=== PATIENT | female | born 1955 | race Caucasian/White ===

== ENCOUNTER → 2019-03-28 08:52 | Outpatient (CLI) | payer OTHER, SELFPAY ==
[2019-03-28 09:09] LABS: Bacteria Urine None Seen
[2019-03-28 09:49] LABS: Add Manual Diff / Slide Review NO; Basophils Absolute Auto 0 /uL (0-100); Basophils Percent Auto 0.6 % (0-2); Eosinophils Absolute Auto 100 /uL (0-450); Eosinophils Percent Auto 0.8 % (2-4); Hematocrit 39.2 % (36-46); Hemoglobin 13.6 g/dL (12.0-16.0); Lymphocytes Absolute Auto 1800 /uL (1100-4500); Lymphocytes Percent Auto 26.4 % (25-40); Mean Corpuscular HGB Conc 34.7 % (30-36); Mean Corpuscular Hemoglobin 36.8 PG (26-34); Mean Corpuscular Volume 106.1 fL (80-100); Monocytes Absolute Auto 600 /uL (0-900); Monocytes Percent Auto 8.1 % (3-14); Neutrophils Absolute Auto 4400 /uL (1500-7000); Neutrophils Percent Auto 64.1 % (50-75); Platelet Count 243 X10^3/uL (150-400); Red Cell Distribution Width 13.8 % (11.6-14.8); White Blood Cell Count 6.9 X10^3/uL (4.5-11.0)
[2019-03-28 10:14] LABS: Hemoglobin A1C% w Est Avg Glu 5.3 % (4.0-6.0)
[2019-03-28 10:15] LABS: Alanine Aminotransferase 18 IU/L (9-52); Albumin 4.3 g/dL (3.5-5.0); Albumin Globulin Ratio 1.5 (1.0-2.8); Alkaline Phosphatase 86 U/L (38-126); Aspartate Aminotransferase 21 IU/L (14-36); BUN Creatinine Ratio 21.7 (6-22); Bilirubin Total 0.5 mg/dL (0.2-1.3); Blood Urea Nitrogen 13 mg/dL (7-17); Calcium 9.7 mg/dL (8.4-10.2); Carbon Dioxide 28 mmol/L (22-32); Chloride 104 mmol/L (98-107); Estimated Glomerular Filt Rate > 60.0 mL/min (>60); Globulin 2.8 g/dL (1.7-4.1); Glucose 95 mg/dL (80-110); HEMOLYSIS < 15 (0-50); Potassium 3.7 mmol/L (3.4-5.1); Sodium 140 mmol/L (137-145); Total Protein 7.1 g/dL (6.3-8.2)
[2019-03-28 10:23] LABS: Appearance Urine UA CLEAR; Bilirubin Urine UA NEGATIVE (NEGATIVE); Color Urine UA YELLOW; Glucose Urine UA NEGATIVE (Negative); Ketones Urine UA NEGATIVE (NEGATIVE); Leukocyte Esterase Urine UA NEGATIVE (NEGATIVE); Nitrite Urine UA NEGATIVE (Negative); Occult Blood Urine UA 1+ (Negative); Protein Urine UA NEGATIVE (Negative); Urobilinogen Urine UA 0.2 E.U./dL (0.2)
[2019-03-28 10:53] LABS: Culture Indicated Urine Cult Not Indicated; RBC Urine 0-1/HPF (0-5/HPF); Squamous Epithelial Cell Urine 0-1 /HPF (0-5/HPF); WBC Urine 0-1/HPF (0-5/HPF)
== END ==
PROVIDERS: Visit Provider Orthopaedic Surgery
DX: Z01.818 Encounter for other preprocedural examination (principal); Z01.812 Encounter for preprocedural laboratory examination; N39.9 Disorder of urinary system, unspecified; Z13.1 Encounter for screening for diabetes mellitus; R73.9 Hyperglycemia, unspecified
CPT/HCPCS: 36415; 80053; 81001; 83036; 85025; 93005

== ENCOUNTER 2019-04-30 05:59 | Inpatient (IN) | payer OTHER, SELFPAY ==
[2019-04-05 08:48] VITALS: BMI 19.1
[2019-04-30] VITALS (15 sets, daily range): BP systolic 97–138; BP diastolic 48–67; PULSE 60–83; RESP 14–20; TEMP 36.2–37.5; O2SAT 63–98; BMI 18.2
--- NOTE | 2019-04-30 | DI.RAD.S_ITS ---
PROCEDURE: XR HIP W PEL IF DONE RT 2V INDICATIONS: RIGHT ANTERIOR HIP REPLACEMENT TECHNIQUE: 2 view(s) of the hip acquired. COMPARISON: None. FINDINGS: Bones: Patient is status post right hip arthroplasty, with hardware components in expected positions. The hip joint appears congruent. The visualized bony structures appear intact. Soft tissues: Overlying postoperative changes are noted. No suspicious soft tissue densities. IMPRESSION: Normal alignment after right total hip arthroplasty. Dictated by: Jemal Orr M.D. on 04/30/2019 at 12:44 Approved by: Jemal Orr M.D. on 04/30/2019 at 12:44
--- NOTE | 2019-04-30 06:34 | DI.RAD.S_ITS ---
PROCEDURE: XR HIP W PEL IF DONE RT 2V INDICATIONS: post op right MANJIT TECHNIQUE: 2 view(s) of the hip acquired. COMPARISON: [facility], [place], XR HIP W PEL IF DONE RT 2V, 04/30/2019, 9:30. FINDINGS: Bones: Patient is status post right hip arthroplasty, with hardware components in expected positions. The hip joint appears congruent. The visualized bony structures appear intact. Soft tissues: Overlying postoperative changes are noted. No suspicious soft tissue densities. IMPRESSION: Full [id number] imaging of the pelvis and right hip show excellent anatomic alignment after right total hip arthroplasty. Moderate left hip degenerative osteoarthritis is incidentally noted. Dictated by: Jemal Orr M.D. on 04/30/2019 at 12:44 Approved by: Jemal Orr M.D. on 04/30/2019 at 12:45
[2019-04-30] MEDS: PREGABALIN 75 MG CAPSULE PO (07:05)
[2019-04-30] MEDS: ACETAMINOPHEN 325 MG TABLET 975 MG PO (07:05)
[2019-04-30] MEDS: VANCOMYCIN 1,000 MG/200 ML PIGGYBACK 200 MG IV (07:25)
--- NOTE | 2019-04-30 07:26 | SUR.PREOP ---
spoke with Dr. Bermudez regarding current dosage amount for current Ancef order in relation to pt weight. Per Dr. Bermudez ok to continue with current order. Communicated this with circulating RN.
--- NOTE | 2019-04-30 07:35 | PM.PREOP ---
Pre-operative Note Interval Note History & Physical reviewed/Exam performed by Physician: Yes Changes to H&P: No
--- NOTE | 2019-04-30 07:36 | P.OP_ITS ---
Operative Date/Time/Diagnoses Date of procedure: 04/30/19 Time of procedure: 07:35 Pre-op diagnosis: right hip AVN and OA Post-op diagnosis: same Procedure & Clinicians Procedure: right total hip arthroplasty anterior approach Same procedure as scheduled: Yes Indications: The patient has had progressively worsening right hip pain with radiographic changes consistent with arthritis. Non-operative management has failed and the patient has requested total hip replacement. The risks, benefits and alternatives to surgery were discussed with the patient prior to proceeding. Risks discussed included, but were not limited to, failure to relieve pain, leg length discrepancy, dislocation, stiffness, infection, nerve damage, deep venous thrombosis, pulmonary embolism, stroke, coma, heart attack, permanent paralysis and , as well as the potential need for eventual revision of the prosthetic. 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 Patient was carefully positioned in the supine position. Time-out was performed and antibiotics were given. Anesthesia was induced. She was positioned in the on the table in order to allow hyperextension of the hip. The right lower extremity was prepped and draped in a standard sterile fashion. An anterior right hip incision was made 1 fingerbreadth lateral to the anterior superior iliac spine and extended distally towards the greater trochanter. Dissection was carried out through skin and subcutaneous tissues. The skin and subcutaneous tissues were carefully injected with Lidocaine with epi. Superficial hemostasis was achieved. The fascia over the tensor fascia magalie was defined and incised with a knife. Two Allis clamps were used to grasp the fascia. Tensor fascia magalie was retracted laterally. A gelpi retractor was placed. Dissection was carried out down along the neck. The circumflex vessels were carefully identified and cauterized with the Aqua Mantis. There was good visualization of the femoral neck. A Cobra was placed superior to the neck and the gluteus fibers were carefully stripped from that superior aspect of the capsule. A 2nd retractor was placed along the inferior aspect of the neck. The rectus insertion along the capsule was partially released. A 3rd retractor that was then gently placed over the rim of the acetabulum under the rectus. Capsule was carefully incised and released from the intertrochanteric line circumferentially superior to the mid sagittal line and inferiorly to the mid sagittal line until the lesser trochanter was palpable. A tag stitch was placed both in the superior and inferior limb of the capsular insertion. Along the acetabulum capsule was also released up to the mid sagittal 12:00 position. A portion of the labrum was resected. A saw was used to perform an osteotomy at the level of the intertrochanteric line and the junction of the superior femoral neck leaving approximately 1 finger breath of residual inferior neck above the lesser trochanter. A 2nd cut was made along the femoral neck at the base of the head and a napkin ring of neck was removed. Corkscrew was placed in the femoral head and the head was removed without difficulty. Retractors were then repositioned around the acetabulum. Residual labrum was resected and additional osteophytes were removed. A reamer that was 4 mm below the templated size was placed by hand in the acetabulum and it was reamed to centralize the acetabulum. It was then reamed up to 2 under the templated size and fluoroscopy was brought in to confirm the position of the reaming and depth of reaming. I reamed 1 under the anticipated size. A trial cup was placed and noted that it was appropriately sized and fluoroscopy confirmed position and depth. The component was open and inserted without d ifficulty fluoroscopic imaging was used to confirm that the cup had been adequately seated and was well positioned. A single 15 mm screw was used to further stabilize the cup. Neutral poly liner was placed. The cup was tested and noted to be stable. Attention was then directed to the femur. The femur was gently hyperextended additional capsular release was performed as needed in order to allow adequate visualization of the proximal femur with elevation of the femur. Patient was placed in a hyperextended slightly adducted position with maximum external rotation. Box osteotome was used to check for any residual neck as well as sclerotic bone along the trochanter. [place] pepper was placed in the femur. Additional broaching was performed. Canal finder was used to determine the alignment of the canal and position. Size 1 broach was placed. The canal was then appropriately broached up to the templated size as long as there was adequate stability of the broach and serial advancement of the broach without excessive impingement. Specific attention was directed at avoiding varus attempting to direct the distal aspect of the broach more anteriorly and avoiding excessive anteversion. Trial reduction showed acceptable range of motion, good stability, no posterior impingement, yazidi of leg length and appropriate lateral shuck. I also hyperflexed the hip and checked that there was no impingement anteriorly and there was good stability with flexion, abduction and internal rotation. Marcaine and Exparel were injected.. The stem was placed without difficulty. Repeat trial reduction and x-ray showed acceptable overall position, length, and no evidence of the femoral fracture. Final head was placed. Wound was meticulously irrigated with normal saline. The hip was reduced and additional Exparel and Marcaine were injected. The capsule was closed with interrupted nonabsorbable sutures. The fascia of the tensor was closed with interrupted and running Vicryl. No drain was placed. Any tensor fascia magalie muscle that appeared to be contused or injured which was a minimal amount was carefully resected. Capsule around the tensor was injected with Exparel and Marcaine. The skin was closed with barbed stitches for the subcutaneous tissue and skin. We also used surgical glue. The wound was dressed sterilely. Brief Betadine soak was also used and was meticulously irrigated with normal saline. Patient was transferred to recovery room in satisfactory condition. Complications: none Condition: stable Disposition: Acute Care Plan for aftercare: The patient will be maintained on a standard total hip replacement protocol with weight bearing as tolerated and anterior hip precautions. The patient will receive Aspirin and sequential compression devices for DVT prophylaxis. The patient will be discharged home when safe for the home environment.
--- NOTE | 2019-04-30 07:44 | PC.NURSE ---
Day shift: Pt not on AC unit at this time.
[2019-04-30] MEDS: CEFAZOLIN 2 GM/100 ML FROZ.PIGGY IV (08:00)
--- NOTE | 2019-04-30 08:42 | SUR.OPER ---
Supine on Clawson table, head on the foam, Iliac crest at the end of the table. Both feet wrapped with web roll and coban and secured in the boots. Left arm secured on arm board <90 degrees abduction, right arm across the chest and taped over the blanket to the table.
[2019-04-30] MEDS: BUPIVACAINE LIPOSOME 266 MG/20 ML VIAL INJ (08:53)
[2019-04-30] MEDS: TRANEXAMIC ACID 1,000 MG VIAL 2000 MG INJ ×2 (08:53→11:03)
[2019-04-30] MEDS: BUPIVACAINE 0.25% W/ EPI 30 ML VIAL 60 ML INJ (08:53)
[2019-04-30] MEDS: LACTATED RINGERS 1,000 ML 42 ML IV (11:29)
--- NOTE | 2019-04-30 11:45 | SUR.PHASEI ---
report called to floor, patient A&O, talking/appropriate, Taking ice chips.
--- NOTE | 2019-04-30 12:08 | SUR.PHASEI ---
1203 stable, tolerating PO well, transported to floor by department staff. Stable, talking, pleasant.
--- NOTE | 2019-04-30 13:54 | PC.NURSE ---
Day shift: Pt on unit at approx 1200 from PACU. Hip Aquacel is CDI. Pt A&Ox3. denies any pain or nausea. Bed alarm on and call light in reach. Agerees to not get OOB w/o help from staff. Tolerating oral intake. IV fluids per NOV.
[2019-04-30] MEDS: LACTATED RINGERS 1,000 ML 125 ML IV (13:57)
--- NOTE | 2019-04-30 14:40 | PT.IIE ---
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) Surgery Performed Operation Date: 04/30/19 07:45 Actual Procedures p Total Hip Arthroplasty/Anterior Approach(Right) - Sherie Bermudez MD Surgical History (Last Updated 04/11/19 @ 13:08 by Shira Mcduffie, RN) Hx of arthroscopy of left knee (Acute) Hx of tonsillectomy (Acute) Hx of tubal ligation (Acute) Medical History (Last Updated 04/11/19 @ 13:08 by Shira Mcduffie RN) Current every day smoker (Acute) Osteoarthritis (Acute) Physical Therapy Inpatient Evaluation/Re-Eval M1 PT/OT-IP Prior Functional Status Start: 04/30/19 15:29 Freq: NEEDED Status: Active Protocol: Document 04/30/19 14:40 RS (Rec: 04/30/19 15:54 RS [id number]) Medical Review Prior Functional Status Medical History Reviewed Yes Diet/Fluid Consistency Regular Communication no known deficits Mobility and Gait ind with mobility but struggling, I could barely move my right leg Activities of Daily Living and IADL's denies needing assist with self-care Prior Functional Level (Other details) denies falls Social History Household Members spouse Living Arrangements House Number of Floors (Floors) One Floor Number of Stairs To Enter/Railing? 3STE with bilat rails Home Equipment Front Wheel Walker Additional Social History Comment spouse and other family members will be providing the initial 24/7 assist M2 PT-IP Current Condition Start: 04/30/19 15:29 Freq: NEEDED Status: Active Protocol: Document 04/30/19 14:40 RS (Rec: 04/30/19 15:54 RS [id number]) Physical Therapy Current Condition Current Condition Evaluation Date 04/30/19 Treatment Diagnosis R anterior MANJIT, impaired mobility Onset Date 04/30/19 Precautions Anterior Hip Precautions No Hip Extension No Hip External Rotation Weight Bearing Status Weight Bearing Status Weight Bear as Tolerated M3 PT-IP Subjective Start: 04/30/19 15:29 Freq: NEEDED Status: Active Protocol: Document 04/30/19 14:40 RS (Rec: 04/30/19 15:54 RS [id number]) Subjective Physical Therapy Visit Type Type Initial Evaluation Visit Start Time 13:55 Visit Stop Time 14:40 Total Visit Minutes 45 Number of RN CARE MANAGER Visits 0 Physical Therapy Visit Comments Patient Comments Pt reports minimal pain, looking forward to getting up and moving. Patient Goals go to the bathroom immediately , go home tomorrow Therapy Pain Assessment Pain When Pain Assessed At Rest Pain Present Pain Present Denied Pain M4 PT-IP Mobility and Gait Start: 04/30/19 15:29 Freq: NEEDED Status: Active Protocol: Document 04/30/19 14:40 RS (Rec: 04/30/19 15:54 RS [id number]) PT-Bed Mobility Assessment Supine to Sit Supine to Sit Standby Assistance Sit to Supine Sit to Supine Standby Assistance Scooting Scooting to Edge of Bed Standby Assistance PT-Transfer Assessment Sit to and From Stand Sit to and from Stand Standby Assistance Equipment Transfer Assistive Device Gait Belt Front Wheeled Walker Transfers Transfer Destination Chair Toilet Transfer Technique walked Transfer Ability Level of Assist Standby Assistance Comments Mobility Comments Pt with good quality movement, no obvious pain, able to perform bed mobility and transfers without physical assist and while maintaining precautions. Gait Assessment Gait Gait Assistance Required: Standby Assistance Distance (Feet) 75 Able to Maintain Weight Bearing Status Yes During Gait Assistive Devices Assistive Device Gait Belt Front Wheeled Walker Gait Deviations General Gait Pattern Antalgic Decreased Stride Length Comments Gait Comments Pt walks with walker without any LOB, does need cues for symmetrical stepping pattern. At first pt taking very small steps, especially with the R foot. Once cued pt was able to take more equal length steps with the goal of having heel land at least in line with the opposite toes on each step. Pt is pigeon-footed at baseline, which is still present now. Stair Climbing Assessment Comments Stair Climbing Comments not tested PT-Balance Assessment Sitting Balance and Reactions Static Sitting Balance Ability Normal Dynamic Sitting Balance Ability Normal Standing Balance and Reactions Static Standing Balance Ability Normal Dynamic Standing Balance Ability Good Device Used FWW M5 PT-IP Objective Assessments Start: 04/30/19 15:29 Freq: NEEDED Status: Active Protocol: Document 04/30/19 14:40 RS (Rec: 04/30/19 15:54 RS [id number]) Orientation Orientation/Cognition Level of Alertness Alert Orientation Name Age Birthday Month Date Year Day of Week Place Situation Language Function Ability No Deficits Noted Safety Awareness Understands Safety Issues Memory Description No Deficits Noted Gross Range of Motion Upper Extremity ROM Assessment Within Functional Limits Lower Extremity ROM Assessment Within Functional Limits Strength Upper Extremity Strength Assessment Within Functional Limits Lower Extremity Strength Assessment Right Impaired Comments Strength Comments RLE at least 3+/5 M6 PT-IP Treatment Start: 04/30/19 15:29 Freq: NEEDED Status: Active Protocol: Document 04/30/19 14:40 RS (Rec: 04/30/19 15:54 RS [id number]) Physical Therapy Treatment Exercises Exercises Ankle Pumps Gluteal Sets Quad Sets Heel Slides Education Education Provided Precautions Weight Bearing Status Post-Op Packet Safety M7 PT-IP Assessment and Plan Start: 04/30/19 15:29 Freq: NEEDED Status: Active Protocol: Document 04/30/19 14:40 RS (Rec: 04/30/19 15:54 RS [id number]) PT Summary Assessment and Plan Potential Rehabilitation Potential Excellent Status of Condition at Evaluation Stable Summary Impairments Strength Gait Activity Tolerance Assessment Summary Pt presents s/p R anterior MANJIT with weakness and overall impaired gait. Currently pt requires SBA and use of FWW for all mobility which is below pt's reported functional baseline. However, pt is mobilizing well enough that she will be safe to discharge directly home with family assist once medically cleared. Prior to discharge pt will need to perform stair training with spouse, but this is not anticipated to be an issue. Pt will need outpatient PT once ready. Goals Bed Mobility Goal Independent Transfer Goal Independent Front Wheeled Walker Gait Goal Independent Front Wheel Walker Gait Distance 200 Other Goals up/down 3 steps with bilat rails and CGA Days to Meet Goals 2 Frequency of Treatment Frequency Of Treatment Twice a Day Treatment Plan Physical Therapy Treatment Plan Bed Mobility Training Transfer Training Gait Training Therapeutic Exercise Balance Retraining Post Op Education Discharge Planning Hot or Cold Pack Neuromuscular Re-ed Coordination Retraining Manual Therapy Other Recommendations and Next Treatment stairs and gait progression Focus Recommendations To Nursing Amount of Assist Needed 1 Person Assist Discharge Recommendations PT Discharge Recommendations Home with Assistance Outpatient PT
[2019-04-30] MEDS: ASPIRIN EC 81 MG TABLET PO (20:48)
[2019-04-30] MEDS: DOCUSATE 100 MG CAPSULE PO (20:48)
[2019-05-01 03:50] VITALS: BP 137/72; PULSE 63; RESP 19; TEMP 36.9; O2SAT 100
[2019-05-01 05:50] LABS: Hematocrit 32.7 % (36-46); Hemoglobin 11.3 g/dL (12.0-16.0)
[2019-05-01] MEDS: SODIUM CHLORIDE 0.9% FLUSH 10 ML IV (07:25)
[2019-05-01] MEDS: DOCUSATE 100 MG CAPSULE PO (07:25)
[2019-05-01] MEDS: ACETAMINOPHEN 325 MG TABLET 975 MG PO (07:25)
[2019-05-01] MEDS: ASPIRIN EC 81 MG TABLET PO (07:25)
--- NOTE | 2019-05-01 07:50 | P.DS_ITS ---
History of Present Illness Date Patient Seen: 05/01/19 Time Patient Seen: 07:50 Chief complaint: [id number] Narrative: Please see HPI recorded in chart. Discharge Providers Date of admission: 04/30/19 05:59 Discharge Date: 05/01/19 Consults: 04/30/19 06:34 Consult to Anesthesiology Routine Comment: Consulting Provider: Anesthesiologist Reason for consultation: Regional block for post operative pain control 04/30/19 12:47 Consult to Discharge Planning Routine Comment: Consult to Physical Therapy Evaluate & Treat Comment: Physician Instructions: post op MANJIT protocol Consult to Respiratory Therapy Evaluate & Treat Comment: Physician Instructions: Evaluate and treat 04/30/19 13:05 Consult to Dietitian, Adult Routine Comment: Does not want the consult Reason For Exam: Not wanted Discharge provider: Sonya Pride PA-C Summary Discharge Diagnosis: s/p right anterior hip arthroplasty Hospital Course: The patient has had progressively worsening right hip pain with radiographic changes consistent with arthritis. Non-operative management has failed and the patient has requested total hip replacement. The risks, benefits and alternatives to surgery were discussed with the patient prior to proceeding. Risks discussed included, but were not limited to, failure to relieve pain, leg length discrepancy, dislocation, stiffness, infection, nerve damage, deep venous thrombosis, pulmonary embolism, stroke, coma, heart attack, permanent paralysis and , as well as the potential need for eventual revision of the prosthetic. After obtaining informed consent patient was taken to the operating room where she underwent a right total hip arthroplasty with Dr. Bermudez which she tolerated well without complications. She was then taken to the acute care floor where she has been progressing well post operatively. Pain has been well controlled. She has mobilized about the room and in the halls with PT. She has been voiding independently. will be caregiver at home and she has supply of all of her post op meds. She is medically stable for discharge to home later today. Status at Discharge Cognitive/behavioral status at discharge: oriented Functional status at discharge: uses cane/walker Overall status at discharge: patient is progressing back to baseline Exam Vital Signs (past 8 hours): - 05/01/19 03:50 Temperature 98.4 F Pulse Rate 63 Respiratory Rate 19 Blood Pressure 137/72 Pulse Oximetry 100 Oxygen Delivery Method Room Air Oxygen Flow Rate 0 Narrative Exam Narrative: 63 year old female resting comfortably in bed, Alert and oriented in no acute distress. Dressing in place is CDI. SILT. Able to flex/extend the ankle. Palpable pedal pulse. Calves soft, compressible. Objective Labs Result Diagrams: 05/01/19 05:05 Labs: Laboratory Results - last 24 hr 05/01/19 05:05 Hgb 11.3 L Hct 32.7 L Discharge Plan Discharge Plan Patient Disposition: Home Discharge Med Rec/Prescriptions Prescriptions: New aspirin 81 mg Tablet,Delayed Release (Dr/Ec) 81 mg PO BID Qty: 60 RF: 0 oxycodone 5 mg Tablet 5 mg PO Q3HR PRN (Reason: Pain, Moderate (4-6)) Qty: 1 RF: 0 Continued acetaminophen [Tylenol Extra Strength] 500 mg Tablet 1,000 mg PO Q6H PRN (Reason: Pain) RF: 0 Follow up/Referrals: Sherie Bermudez MD [Physician] - Provider Discharge Instructions Diet: Diet as Tolerated Activity: Weight bear as tolerated. Use front wheel walker for support. Cold/Heat Therapy: Ice packs as needed. Other treatments: Please see Counts include [facility] beds at the [facility] guide Skin/Wound/Dressing Care Report to your healthcare provider any signs of infection, such as:: chills, fever, night sweats, unusual drainage and unusual redness Dressing: Please leave dressing in place, it will be removed at 2 week post op. Please call the office if dressing becomes saturated. Visit Report/Discharge Packet Instructions: DI for Hip Replacement, How to Prevent Falls, DI for Postoperative Pain Discharge Data Attending Provider: Sherie Bermudez Admit Date/Time: 04/30/19 05:59 Quality VTE Deep Vein Thrombosis/Pulmonary Embolism Present on Admission: No
[2019-05-01 07:58] VITALS: BP 130/75; PULSE 63; RESP 18; TEMP 37.3; O2SAT 97
--- NOTE | 2019-05-01 08:57 | PC.NURSE ---
Addendum entered by Magui Beauchamp R.N. 05/01/19 10:46: Reviewed discharge summary packet with pt at 1030, no voiced concerns. Pain improved from 4/10 to 3/10 with less tightness to right thigh. Pt did not want additional pain meds prior to discharge. Pt left unit with all belongings with her Aldo at her side to drive her home. Pt left unit via wheelchair at 1045 in no distress with TESTER/LIFT TRUCKER escort. Addendum entered by Magui Beauchamp R.N. 05/01/19 09:32: Pt wanted 1/4 tab PRN Oxycodone prior to working with PT on stair training. Med given at 0915, see MAR for 4/10 pain. At 0930, pt given Discharge Summary Package to pre-read in anticipation of discharge after PT session. States she has her 1st post op follow up appointment in her Swipath Booklet. Aldo at bedside also at this time. Original Note: Day Shift- Pt A&OX4, able to make needs known using call light. rates 5/10 aching to right anterior hip extending to right thigh tenderness to above knee. Pain management plan discussed. Pt initially only wanting scheduled Acetaminophen for pain management. Discussed splitting PRN Oxycodone tab in half if she feels 5mg is too much as pt wanted to avoid narcotics. Also pre-medicating prior to PT sessions. Pt has not had Oxycodone before. After discussing with surgical PA, pt agreeable to trying 1/2 tab Oxycodone here. Right hip anterior incision covered with CDI Aquacel , CMS +, PPP, edema surrounding incision. RLE placed on pillow lengthwise under leg. Pt able to voice anterior hip precautions. States is wanting to go home today.
[2019-05-01] MEDS: OXYCODONE IR 5 MG TABLET PO (09:16)
--- NOTE | 2019-05-01 10:21 | PT.IPTN ---
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) Surgery Performed Operation Date: 04/30/19 07:45 Actual Procedures p Total Hip Arthroplasty/Anterior Approach(Right) - Sherie Bermudez MD Physical Therapy Treatment Note M2 PT-IP Current Condition Start: 04/30/19 15:29 Freq: NEEDED Status: Active Protocol: Document 04/30/19 14:40 RS (Rec: 04/30/19 15:54 RS [id number]) Physical Therapy Current Condition Current Condition Evaluation Date 04/30/19 Treatment Diagnosis R anterior MANJIT, impaired mobility Onset Date 04/30/19 Precautions Anterior Hip Precautions No Hip Extension No Hip External Rotation Weight Bearing Status Weight Bearing Status Weight Bear as Tolerated M3 PT-IP Subjective Start: 04/30/19 15:29 Freq: NEEDED Status: Active Protocol: Document 05/01/19 09:58 CLB (Rec: 05/01/19 10:39 CLB [email or web address]) Subjective Physical Therapy Visit Type Type Treatment Note Visit Start Time 09:58 Visit Stop Time 10:21 Total Visit Minutes 23 Notes Aldo pt SO present for CG training. Number of US CUSTOMS AND BORDER OFFICER Visits 1 Physical Therapy Visit Comments Patient Comments Pt willing to trial stairs. Therapy Pain Assessment Pain When Pain Assessed During Mobility Pain Present Pain Present Pain Reported Location right hip/lower back Description Tightness Pain Management Techniques Apply Cold Modification of Treatment Timing of Activity with Medications M4 PT-IP Mobility and Gait Start: 04/30/19 15:29 Freq: NEEDED Status: Active Protocol: Document 05/01/19 09:58 CLB (Rec: 05/01/19 10:39 CLB [email or web address]) PT-Bed Mobility Assessment Supine to Sit Supine to Sit Standby Assistance Sit to Supine Sit to Supine Standby Assistance Scooting Scooting to Edge of Bed Standby Assistance PT-Transfer Assessment Sit to and From Stand Sit to and from Stand Standby Assistance Equipment Transfer Assistive Device Gait Belt Front Wheeled Walker Transfers Transfer Destination Chair Toilet Transfer Technique walked Transfer Ability Level of Assist Standby Assistance Comments Mobility Comments Pt able to perform all bed mobility, sit-stand and transfers SBA. Gait Assessment Gait Gait Assistance Required: Standby Assistance Distance (Feet) 250 Able to Maintain Weight Bearing Status Yes During Gait Assistive Devices Assistive Device Gait Belt Front Wheeled Walker Gait Deviations General Gait Pattern Antalgic Decreased Stride Length Comments Gait Comments Pt ambulating ~250ft SBA with FWW. Pt required cues for step sequencing. Pt has steady gait w/o LOB and good safety awareness. Stair Climbing Assessment Evaluation Level of Assist On Stairs Contact Guard Assistance Devices Stair Climbing Assistive Devices Front Wheel Walker Technique/Endurance Stair Climbing Direction Ascend and Descend Stair Climbing Technique Step to Step Number of Steps Climbed 1 Stair Climbing Set # Repetitions (reps) 3 Comments Stair Climbing Comments SO able to assist pt with CGA. M5 PT-IP Objective Assessments Start: 04/30/19 15:29 Freq: NEEDED Status: Active Protocol: Document 04/30/19 14:40 RS (Rec: 04/30/19 15:54 RS [id number]) Orientation Orientation/Cognition Level of Alertness Alert Orientation Name Age Birthday Month Date Year Day of Week Place Situation Language Function Ability No Deficits Noted Safety Awareness Understands Safety Issues Memory Description No Deficits Noted Gross Range of Motion Upper Extremity ROM Assessment Within Functional Limits Lower Extremity ROM Assessment Within Functional Limits Strength Upper Extremity Strength Assessment Within Functional Limits Lower Extremity Strength Assessment Right Impaired Comments Strength Comments RLE at least 3+/5 M6 PT-IP Treatment Start: 04/30/19 15:29 Freq: NEEDED Status: Active Protocol: Document 05/01/19 09:58 CLB (Rec: 05/01/19 10:39 CLB [email or web address]) Physical Therapy Treatment Exercises Exercises Ankle Pumps Gluteal Sets Quad Sets Heel Slides Education Education Provided Precautions Safety Other Treatments Other Treatment Performed Pt able to recall 2/2 precautions. M7 PT-IP Assessment and Plan Start: 04/30/19 15:29 Freq: NEEDED Status: Active Protocol: Document 05/01/19 09:58 CLB (Rec: 05/01/19 10:39 CLB [email or web address]) PT Summary Assessment and Plan Potential Rehabilitation Potential Excellent Status of Condition at Evaluation Stable Summary Impairments Strength Gait Activity Tolerance Assessment Summary Pt improving with all mobility requiring SBA for all mobility and CGA for stair climbing. RIP Carlson present for CG training and is able to assist pt with all mobility and stairs. Pt seems able to d /c home with assist when medically stable. Goals Bed Mobility Goal Independent Transfer Goal Independent Front Wheeled Walker Gait Goal Independent Front Wheel Walker Gait Distance 200 Other Goals up/down 3 steps with bilat rails and CGA Days to Meet Goals 2 Frequency of Treatment Frequency Of Treatment Twice a Day Treatment Plan Physical Therapy Treatment Plan Bed Mobility Training Transfer Training Gait Training Therapeutic Exercise Balance Retraining Post Op Education Discharge Planning Hot or Cold Pack Neuromuscular Re-ed Coordination Retraining Manual Therapy Other Recommendations and Next Treatment stairs and gait progression Focus Recommendations To Nursing Amount of Assist Needed 1 Person Assist Discharge Recommendations PT Discharge Recommendations Home with Assistance Outpatient PT
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
== END 2019-05-01 10:45 | disposition home or self-care (01) | DRG 470 ==
PROVIDERS: Admitting Provider Orthopaedic Surgery; Visit Provider Orthopaedic Surgery
PROC: 0SR902Z Replacement of Right Hip Joint with Metal on Polyethylene Synthetic Substitute, Open Approach (ICD-10-PCS; CPT 27130; principal; 2019-04-30 07:45)
DX: M16.11 Unilateral primary osteoarthritis, right hip (principal); M87.051 Idiopathic aseptic necrosis of right femur; F17.210 Nicotine dependence, cigarettes, uncomplicated
CPT/HCPCS: 36415; 73502; 76000; 85014; 85018; 94762; 97116; 97161; 97530; C1776; C9290; J0171; J0690; J1100; J2250; J2274; J2405; J2704; J3010